=== PATIENT | male | born 1970 | race Caucasian/White ===

== ENCOUNTER 2021-01-02 16:31 | Outpatient (REF) | payer OTHER, SELFPAY ==
--- NOTE | ~2021-01-02 | MR_ITS ---
EXAMINATION: MR BRAIN WITHOUT AND WITH CONTRAST CLINICAL INFORMATION: Migraine without aura COMPARISON: None TECHNIQUE: Multiplanar, multisequence MRI of the brain was obtained before and after the intravenous administration of 10 mL Gadavist. FINDINGS: Mild-moderate diffuse commensurate prominence of ventricles and sulci is noted. A mild number of scattered supratentorial punctate (less than 3 mm) T2 hyperintensities are visualized. No perivenular lesions are noted. No intracranial hemorrhage, tumors or acute infarcts are identified. Susceptibility weighted images reveal no evidence of acute or chronic hemorrhage within the brain parenchyma. Normal flow-related signal intensity is identified in the major intracranial vessels and dural sinuses and probable bilateral type origins of the posterior cerebral arteries are noted. Making allowances for motion artifact, the orbits and globes are normal in appearance. The craniocervical junction and cerebellar tonsils are normal in appearance. No marrow abnormalities are visualized. No abnormal enhancement of the brain is identified. Mild mucosal thickening is noted within the sphenoid sinus and within a right lateral sphenoid air cell. Mild mucosal thickening is noted in scattered bilateral anterior and posterior ethmoid air cells. MR/MR head/brain wo/w con IMPRESSION: 1. No acute abnormalities. 2. Findings suspicious for mild white matter chronic small vessel ischemic changes. 3. Mild-moderate diffuse commensurate prominence of ventricles and sulci. These findings may represent normal anatomic variation, or in the correct clinical setting, mild-moderate diffuse parenchymal volume loss of the brain. 4. Mild mucosal thickening within the sphenoid sinus which could correlate with chronic sphenoid sinusitis.
== END 2021-01-02 16:32 | disposition home or self-care (01) ==
LOC: HO.MRI 16:31
PROVIDERS: Visit Provider Psychiatry & Neurology Neurology
DX: G43.009 Migraine without aura, not intractable, without status migrainosus (principal)
CPT/HCPCS: 70553; A9585